=== PATIENT | female | born 2000 | race Hispanic/Latino ===

== ENCOUNTER 2022-03-17 15:02 | Emergency (ER) | payer OTHER, SELFPAY ==
[2022-03-17 15:10] VITALS: BP 110/67; PULSE 72; RESP 16; TEMP 37.3; O2SAT 100
--- NOTE | 2022-03-17 15:17 | ED.ABDPAIN ---
HPI - Abdominal Pain General Chief Complaint: Abdominal Pain Stated Complaint: abd pain Time Seen by Provider: 03/17/22 15:17 Source: patient, RN notes reviewed and old records reviewed Mode of arrival: ambulatory Limitations: no limitations History of Present Illness HPI narrative: 21-year-old female presents to the [facility] with complaints of abdominal pain. Patient reports 6 days of generalized abdominal pain, diarrhea. States every time she eats or drinks anything she develops nausea within 30 minutes. Has not been able to eat any foods without pain for the last 6 days. States her diarrhea has gotten a little bit better, not as watery. Denies fevers. No urinary symptoms. Denies chances of MD elicited complaint: abdominal pain Onset (ago): day(s) (6) Related Data Patient : No Home Medications Medication Instructions Recorded Confirmed No Home Medications 03/17/22 03/17/22 Allergies Allergy/AdvReac Type Severity Reaction Status Date / Time No Known Allergies Allergy Verified 03/17/22 15:13 Review of Systems Review of Systems: All systems reviewed & are unremarkable except as noted in HPI and below Constitutional: Constitutional: Reports no additional constitutional complaints, Denies body ache(s), Denies chills and Denies fever(s) Eyes: Eyes: Reports no additional eye complaints ENT: Reports system reviewed and no additional complaints, except as documented Cardiovascular: Cardiovascular: Reports no additional cardiovascular complaints, Denies chest pain and Denies dyspnea Respiratory: Respiratory: Reports no additional respiratory complaints, Denies cough and Denies dyspnea Gastrointestinal: Gastrointestinal: Reports as per HPI, Reports abdominal pain, Reports diarrhea, Reports nausea and Reports vomiting Genitourinary: Genitourinary: Reports no additional female genitourinary complaints, Denies nocturia, Denies genital lesions, Denies dysuria, Denies pelvic pain, Denies flank pain and Denies urinary incontinence Musculoskeletal: Musculoskeletal: Reports no additional musculoskeletal complaints Integumentary/Breasts: Skin/Breast: Reports system reviewed and no additional complaints, except as docu Neurologic: Reports system reviewed and no additional complaints, except as documented Psychiatric: Psychiatric: Reports no additional psychiatric complaints Allergic/Immunologic: Allergic/Immunologic: Reports no additional allergic/immunologic complaints PMFSH Past Medical History Medical History Patient denies medical problems Surgical History Surgical History (Updated 03/17/22 @ 15:26 by Kim Hill APRN) No pertinent past surgical history Social History Social History (Updated 03/17/22 @ 15:27 by Kim Hill APRN) Gender identity (if verbalized by the patient): Female Comments At the time of my signature, I reviewed and agree with the nursing past medical, surgical, social, and family history. There is no relevant family history pertinent to the patient complaint. Exam Const: General: cooperative, healthy appearing, comfortable, no acute distress, well developed and alert Nutritional Appearance: well nourished Orientation/consciousness: patient oriented x3 Limitations: no limitations HENMT: Head: normal to inspection Ears: external ears normal General nose exam: Normal external nose present Mouth: Yes Normal oral and palatal mucosa present Throat: posterior oropharynx normal Eyes: Pupils: Equal, round and reactive pupils present Neck: Neck: normal visual inspection, no lymphadenopathy and no meningeal signs Chest: Chest palpation & inspection: normal inspection of the chest Resp: Effort & Inspection: normal respiratory effort, able to speak in complete sentences and no use of accessory muscles Auscultation: clear to auscultation bilaterally Cardio: Rate: regular rate Rhythm: regular rhythm G
== END 2022-03-17 15:30 | disposition short-term general hospital (02) ==
LOC: EXPCOLL 15:05
PROVIDERS: Emergency Provider Nurse Practitioner
DX: R10.84 Generalized abdominal pain (principal)
CPT/HCPCS: 99212; G0463

== ENCOUNTER 2022-03-17 15:46 | Emergency (ER) | payer OTHER, SELFPAY ==
--- NOTE | ~2022-03-17 | CT_ITS ---
EXAMINATION: CT abdomen pelvis w con INDICATION: Abdominal pain TECHNIQUE: Computed tomographic images of the abdomen and pelvis were obtained after the administrati on of 85 cc of Omnipaque 300 intravenous contrast. The dose-length product (DLP) was 193.24 mGy-cm. A utomated exposure control and iterative reconstruction technique were employed. COMPARISON: None available FINDINGS: The heart size is normal. There is a partially imaged 3.1 x 1.9 cm cystic and solid soft ti ssue density involving the lateral aspect of the right middle lobe. The liver, spleen, pancreas, gall bladder, and adrenal glands are normal. The kidneys are unremarkable. A moderate volume of colonic st ool is present. The appendix is normal. There is mild enlargement of the parametrial vessels in the l eft pelvis which can be seen in the setting of pelvic venous congestion syndrome. No pathologically enlarged abdominal or pelvic lymph nodes are identified. There is no free intraperi toneal gas or evidence of bowel obstruction. IMPRESSION: 1. Mild enlargement of the parametrial vessels in the left pelvis which can be seen in the setting of pelvic venous congestion syndrome. 2. Partially imaged complex cystic and solid soft tissue density of the right middle lobe, possibly r eflecting old pulmonary infarct or chronic infection. Given that finding is unrelated to patient's cu rrent clinical presentation, would recommend follow-up with nonemergent CT of the chest. Reviewed, dictated and finalized at location F. IMPRESSION: 1. Mild enlargement of the parametrial vessels in the left pelvis which can be seen in the setting of pelvic venous congestion syndrome. 2. Partially imaged complex cystic and solid soft tissue density of the right m iddle lobe, possibly reflecting old pulmonary infarct or chronic infection. Giv en that finding is unrelated to patient's current clinical presentation, would recommend follow-up with nonemergent CT of the chest.
[2022-03-17 16:00] VITALS: BP 103/72; PULSE 67; RESP 18; TEMP 37.1; O2SAT 100
[2022-03-17 16:19] LABS: Basophils Percent Auto 0.7 % (0.2-1.2); Eosinophils Absolute Auto 0.1 K/mm3 (0-0.3); Eosinophils Percent Auto 3.1 % (0-4.4); Hematocrit 42.3 % (37.0-47.0); Hemoglobin 13.3 g/dL (12.0-15.0); Lymphocytes Percent Auto 40.9 % (18.3-44.2); Mean Corpuscular HGB Conc 31.4 g/dl (32-36); Mean Corpuscular Hemoglobin 28.4 pg (26-34); Mean Corpuscular Volume 90.4 fl (80-100); Mean Platelet Volume 11.4 fl (7.4-10.4); Monocytes Absolute Auto 0.3 K/mm3 (0.1-0.6); Monocytes Percent Auto 8.2 % (2.6-8.5); Neutrophils Percent Auto 47.1 % (45.5-73.1); Platelet Count Result 198 k/mm3 (150-375); Red Blood Count 4.68 M/mm3 (4.2-5.4); Red Cell Distribution Width 12.5 % (11.5-14.5); White Blood Count 4.2 K/mm3 (4.5-10.0)
[2022-03-17 16:30] LABS: Atypical Lymphocytes Present; Ovalocytes 1+ (NORMAL); Platelet Estimate Adequate (Adequate)
[2022-03-17 16:31] LABS: Alanine Aminotransferase 7 U/L (6-35); Albumin Level 4.4 g/dL (3.5-5.1); Alkaline Phosphatase 54 U/L (38-126); Anion Gap 7 mmol/L (8-16); Aspartate Amino Transferase 29 U/L (14-36); Bilirubin,Total 0.2 mg/dL (0.2-1.3); Blood Urea Nitrogen 8 mg/dL (7-17); Calcium 8.7 mg/dL (8.4-10.2); Carbon Dioxide 24 mmol/L (22-30); Chloride 106 mmol/L (98-107); Estimated CRCL calculation 70 ml/min; Estimated Glomerular Filt Rate > 60; Glucose 86 mg/dL (65-110); Lipase 106 U/L (23-300); Potassium 4.1 mmol/L (3.4-5.0); Sodium 137 mmol/L (137-145)
[2022-03-17 16:46] LABS: Add Urine Microscopic? NO; Appearance Urine Clear (Clear); Bilirubin Urine Negative (Negative); Blood Urine Negative (Negative); Color Urine Yellow (Yellow); Glucose Urine UA Negative (Negative); Ketones Urine Negative (Negative); Leukocyte Esterase Ur Negative LEU/UL (Negative); Nitrate Urine Negative (Negative); Protein Urine Negative (Negative); Urobilinogen Urine 0.2 mg/dL (<2.0); pH Urine 5.5 (5.0-9.0)
--- NOTE | 2022-03-17 17:56 | ED.ABDPAIN ---
HPI - Abdominal Pain General Chief Complaint: Abdominal Pain Stated Complaint: abd pain Time Seen by Provider: 03/17/22 17:21 Source: RN notes reviewed History of Present Illness HPI narrative: Patient presents emergency department from urgent care for abdominal pain. Patient states abdominal pain began 6 days ago. The pain is located in the bilateral lower abdomen and does not radiate described as sharp and stabbing in nature. Patient states she initially had diarrhea the pain but that has since ceased she denies any fevers or chills. States occasional nausea but denies any vomiting denies any other symptoms at this time denies any vaginal bleeding or discharge Related Data Allergies Allergy/AdvReac Type Severity Reaction Status Date / Time No Known Allergies Allergy Verified 03/17/22 15:13 Review of Systems Review of Systems: Gen.: Denies fevers or chills ENT: Denies congestion Respiratory: Denies shortness of breath or cough CV: Denies chest pain or palpitations GI: See HPI denies burning, urgency, frequency or hematuria Musculoskeletal: Denies back pain or muscle pain Neuro: Denies numbness, tingling, weakness or focal weakness Skin: Denies rash Except as documented, all other systems reviewed and negative PMFSH Past Medical History Medical History Patient denies medical problems Surgical History Surgical History (Updated 03/17/22 @ 15:26 by Kim Hill APRN) No pertinent past surgical history Social History Social History (Updated 03/17/22 @ 17:57 by Az Sim DO) Smoking status: Never smoker Gender identity (if verbalized by the patient): Female Exam Narrative: APPEARANCE: No acute distress, nontoxic, resting in bed HEENT: Normocephalic, atraumatic, OMM RESPIRATORY: No respiratory distress, clear to auscultation bilaterally with no rhonchi wheezing or rales CARDIOVASCULAR: RRR s murmur ABDOMINAL: Soft nondistended tender palpation right lower quadrant left lower quadrant no tenderness right upper quadrant left upper quadrant no rebound or guarding MUSCULOSKELETAl: Moves all extremities. No clubbing, cyanosis or edema. NEURO: Awake and alert. Following commands, speech normal, no focal deficits SKIN:: Warm, dry. Normal Color PSYCHIATRIC: Normal affect/mood Course Course Emergency Course: Patient states that they are feeling much better at this time. States abdominal pain has resolved. Repeat abdominal exam shows the patient's abdomen to be soft and nontender. Discussed with patient results of workup and diagnosis. Discussed need for follow-up with primary care physician, reasons to return to the emergency department in proper use of medication. Patient understands and agrees to current treatment plan discussed with patient her CT scan of her chest she has been having no coughing no shortness of breath discussed need for follow-up imaging as an outpatient. Patient states she does have regular [employer] she follows with and will follow as an outpatient Vital Signs Vital signs: Vital Signs Temperature 98.7 F 03/17/22 16:00 Pulse Rate 67 03/17/22 16:00 Respiratory Rate 18 03/17/22 16:00 Blood Pressure 103/72 03/17/22 16:00 Pulse Oximetry 100 03/17/22 16:00 Oxygen Delivery Room Air 03/17/22 16:00 Temperature 98.7 F 03/17/22 16:00 Pulse Rate 67 03/17/22 16:00 Respiratory Rate 18 03/17/22 16:00 Blood Pressure 103/72 03/17/22 16:00 Pulse Oximetry 100 03/17/22 16:00 Oxygen Delivery Room Air 03/17/22 16:00 MDM - Abdominal Pain MDM Narrative Medical decision making narrative: Patient's abdomen is soft without significant pain or signs of surgical abdomen on serial exams. Lab and x-ray evaluations are reviewed and patient is felt to be a reasonable candidate for outpatient management. Patient was instructed as to limitations of x-ray and laboratory evaluation and encouraged to return to ED o
[2022-03-17] MEDS: SODIUM CHLORIDE 0.9% IV 1,000 ML 999 ML IV CONT (18:29)
[2022-03-17] MEDS: KETOROLAC 30 MG/ML VIAL (*BKC) IV PUSH (18:29)
[2022-03-17 20:32] VITALS: BP 112/79; PULSE 80; RESP 17; O2SAT 100
== END 2022-03-17 20:34 | disposition home or self-care (01) ==
PROVIDERS: Emergency Provider Emergency Medicine
DX: R10.32 Left lower quadrant pain (principal); R10.31 Right lower quadrant pain; R93.5 Abnormal findings on diagnostic imaging of other abdominal regions, including retroperitoneum; R91.8 Other nonspecific abnormal finding of lung field
CPT/HCPCS: 36415; 74177; 80053; 81003; 81025; 83690; 85025; 96361; 96374; 99284; J1885; J7030; Q9967

== ENCOUNTER 2023-03-15 13:42 | Emergency (ER) | payer OTHER, SELFPAY ==
[2023-03-15 13:49] VITALS: BP 97/63; PULSE 107; RESP 16; TEMP 37.3; O2SAT 99
[2023-03-15 13:56] VITALS: BP 97/63; PULSE 107; RESP 16; TEMP 37.3; O2SAT 99
--- NOTE | 2023-03-15 14:09 | ED.URI ---
HPI - URI/Sore Throat General Chief Complaint: Ear Stated Complaint: fever, body aches, pain in left ear Time Seen by Provider: 03/15/23 14:00 Source: patient and family Mode of arrival: ambulatory Limitations: no limitations History of Present Illness HPI Narrative: Jazmín is a 22-year-old female patient presenting to the clinic today with complaints sore throat, fever, body aches, and pain in her left ear times 1 day. She reports symptoms began last night. Highest temperature was 100.9? F. no known exposure to anybody with COVID, flu, or strep. MD elicited complaint: fever, sore throat, nasal congestion and other (Body aches, ear pain) Related Data Allergies Allergy/AdvReac Type Severity Reaction Status Date / Time No Known Allergies Allergy Verified 03/15/23 13:51 Review of Systems Review of Systems: Pertinent positives per HPI. Patient denies any rash, headache, visual changes, dizziness, shortness of breath, chest pain, palpitations, nausea, vomiting, diarrhea, constipation, abdominal pain, or any urinary issues. PMFSH Past Medical History Medical History Patient denies medical problems Surgical History Surgical History No pertinent past surgical history Social History Social History Smoking status: Never smoker Gender identity (if verbalized by the patient): Female Comments At the time of my signature, I reviewed and agree with the nursing past medical, surgical, social, and family history. There is no relevant family history pertinent to the patient complaint. Exam Narrative: General: Well-developed, well nourished, in no apparent distress Head: Normocephalic, atraumatic Eyes: Pupils equally round and reactive to light bilaterally, EOM intact, sclera and conjunctive clear, no discharge, lids normal Ears: TMs intact and congested, ear canals clear, no drainage, grossly hearing normal. Nose: Nares patent, clear discharge, no inflammation, no sinus tenderness. Mouth: Oral pharynx red without lesions or masses, good dentition, MMM. Neck: Supple, trachea midline, no enlargement of anterior or posterior cervical nodes, no thyroid masses or goiter palpable. Cardio: Regular rate and rhythm, s1 and s2 normal, no murmur appreciated. Resp: Clear to auscultation bilaterally, no rhonchi, rales, wheezing or rubs Course Course Emergency Course: Portions of this record may have been created with voice recognition software. Level of Care: Express Care Visit Vital Signs Vital signs: Vital Signs Temperature 37.3 C 03/15/23 13:49 Pulse Rate 107 H 03/15/23 13:49 Respiratory Rate 16 03/15/23 13:49 Blood Pressure 97/63 L 03/15/23 13:49 Pulse Oximetry 99 03/15/23 13:49 Oxygen Delivery Room Air 03/15/23 13:49 Temperature 37.3 C 03/15/23 13:56 Pulse Rate 107 H 03/15/23 13:56 Respiratory Rate 16 03/15/23 13:56 Blood Pressure 97/63 L 03/15/23 13:56 Pulse Oximetry 99 03/15/23 13:56 Oxygen Delivery Room Air 03/15/23 13:56 Vital signs reviewed MDM - URI/Sore Throat MDM Narrative Medical decision making narrative: At the time of visit patient is resting comfortably on the exam table. Influenza and strep screen were obtained and negative in the clinic today. I suspect patient has viral syndrome, pharyngitis, otalgia, and URI. Supportive measures were discussed with the patient and she voiced understanding of discharge instructions agrees to treatment plan Differential Diagnosis Differential diagnosis: Likely upper respiratory infection, otitis media, sinusitis, viral infection, bronchitis, influenza, pharyngitis and other (COVID) Discharge Plan Discharge Clinical Impression: Acute upper respiratory infection, Acute otalgia, Pharyngitis, Acute viral syndrome Patient Disposi
== END 2023-03-15 14:21 | disposition home or self-care (01) ==
PROVIDERS: Emergency Provider Nurse Practitioner Family; PCP Physician Assistant
DX: J06.9 Acute upper respiratory infection, unspecified (principal); J02.9 Acute pharyngitis, unspecified; B34.9 Viral infection, unspecified; H92.02 Otalgia, left ear
CPT/HCPCS: 87081; 87804; 87880; 99213; G0463

== ENCOUNTER 2023-03-17 09:22 | Emergency (ER) | payer OTHER, SELFPAY ==
[2023-03-17 09:27] VITALS: BP 106/69; PULSE 100; RESP 16; TEMP 36.6; O2SAT 100
--- NOTE | 2023-03-17 09:54 | ED.ABDPAIN ---
HPI - Abdominal Pain General Chief Complaint: Abdominal Pain Stated Complaint: ABD PAIN IRREGULAR BM'S Time Seen by Provider: 03/17/23 09:33 History of Present Illness HPI narrative: This is a 22-year-old female, who presents to the emergency department complaining of lower abdominal pain, fevers and loose stools for the past 3 days. 4 days ago, the patient returned from [facility] from a recent trip. She states she developed cramping and intermittently sharp lower abdominal pain rated 8/10 at maximum and 4/10 at present. This is associated with loose brown stools without blood. She denies nausea, vomiting or dysuria. She states others on her trip have not had similar symptoms. She states her last menstrual period was 1 week ago. Related Data Allergies Allergy/AdvReac Type Severity Reaction Status Date / Time No Known Allergies Allergy Verified 03/17/23 10:32 Review of Systems Review of Systems: CONSTITUTIONAL: Denies fever, chills, or sweats. ENT: Denies rhinorrhea, congestion, sore throat, or otalgia. CARDIOVASCULAR: Denies chest pain, palpitations, or edema. RESPIRATORY: Denies cough or dyspnea. GASTROINTESTINAL: Lower abdominal pain, loose stools denies nausea or vomiting, GENITOURINARY: Denies dysuria or hematuria. SKIN: Denies rash or itching. MUSCULOSKELETAL: Denies back pain, joint pain, or myalgia. NEUROLOGIC: Denies headache, numbness, dizziness, or weakness. PSYCHIATRIC: Denies anxiety or depression. PMFSH Past Medical History Medical History Patient denies medical problems Surgical History Surgical History No pertinent past surgical history Social History Social History (Updated 03/17/23 @ 09:57 by Victor M Martell MD) Smoking status: Never smoker Alcohol intake: current Drinks per week: 1 Substance use: never Gender identity (if verbalized by the patient): Female Exam Narrative: GENERAL: Well-developed, well-nourished, appears uncomfortable HEAD: Normocephalic, atraumatic. EYES: PERRLA and EOMI. ENT: Nares clear, no rhinorrhea or epistaxis. Mucous membranes moist. Oropharynx without tonsillar hypertrophy exudate or other lesions. Bilateral TMs pearly cook nonbulging CHEST: Clear to auscultation. No respiratory distress. No wheezes rales or rhonchi HEART: Regular rate and rhythm. No murmur heard. Normal peripheral pulses. ABDOMEN: Soft, mild periumbilical tenderness to palpation, without rebound or guarding, nondistended, normal active bowel sounds. No CVA tenderness to palpation EXTREMITIES: Normal range of motion. No edema. SKIN: Warm, dry, no rash. NEURO: No focal deficits. Alert and oriented x3. PSYCH: Normal mood and affect. Course Vital Signs Vital signs: Vital Signs Temperature 97.9 F 03/17/23 09:27 Pulse Rate 100 03/17/23 09:27 Respiratory Rate 16 03/17/23 09:27 Blood Pressure 106/69 03/17/23 09:27 Pulse Oximetry 100 03/17/23 09:27 Temperature 97.9 F 03/17/23 09:27 Pulse Rate 86 03/17/23 11:33 Respiratory Rate 18 03/17/23 11:33 Blood Pressure 95/64 L 03/17/23 11:33 Pulse Oximetry 100 03/17/23 11:33 MDM - Abdominal Pain Lab Data 03/17/23 10:14 03/17/23 10:14 Labs: Lab Results 03/17/23 Range/Units 10:14 WBC 6.8 (4.5-10.0) K/mm3 RBC 4.44 (4.2-5.4) M/mm3 Hgb 11.7 L (12.0-15.0) g/dL Hct 39.3 (37.0-47.0) % MCV 88.5 (80-100) fl MCH 26.4 (26-34) pg MCHC 29.8 L (32-36) g/dl RDW 13.0 (11.5-14.5) % Plt Count 210 (150-375) k/mm3 MPV 11.3 H (7.4-10.4) fl Immature Gran % (Auto) 0.1 (0-0.5) % Neut % (Auto) 79.2 H (45.5-73.1) % Lymph % (Auto) 10.8 L (18.3-44.2) % [place] % (Auto) 8.3 (2.6-8.5) % Eos % (Auto) 1.0 (0-4.4) % Baso % (Auto) 0.6 (0.2-1.2) % Lymph # (Auto) 0.74 L (0.9-3.2) K/mm3 [place] # (Auto) 0.6 (0.1-0.6) K/mm3
[2023-03-17] MEDS: SODIUM CHLORIDE 0.9% IV 1,000 ML 999 ML IV CONT (10:30)
[2023-03-17 10:35] LABS: Basophils Percent Auto 0.6 % (0.2-1.2); Eosinophils Absolute Auto 0.1 K/mm3 (0-0.3); Hematocrit 39.3 % (37.0-47.0); Hemoglobin 11.7 g/dL (12.0-15.0); Immature Granulocyte Absolute 0.01 K/mm3 (0.00-0.031); Immature Granulocyte Percent A 0.1 % (0-0.5); Lymphocytes Absolute Auto 0.74 K/mm3 (0.9-3.2); Lymphocytes Percent Auto 10.8 % (18.3-44.2); Mean Corpuscular HGB Conc 29.8 g/dl (32-36); Mean Corpuscular Hemoglobin 26.4 pg (26-34); Mean Corpuscular Volume 88.5 fl (80-100); Mean Platelet Volume 11.3 fl (7.4-10.4); Monocytes Absolute Auto 0.6 K/mm3 (0.1-0.6); Monocytes Percent Auto 8.3 % (2.6-8.5); Neutrophils Absolute Auto 5.4 K/mm3 (1.3-6.7); Neutrophils Percent Auto 79.2 % (45.5-73.1); Platelet Count Result 210 k/mm3 (150-375); Red Blood Count 4.44 M/mm3 (4.2-5.4); White Blood Count 6.8 K/mm3 (4.5-10.0)
[2023-03-17 10:37] LABS: Alanine Aminotransferase 15 U/L (6-35); Albumin Level 3.8 g/dL (3.5-5.1); Alkaline Phosphatase 43 U/L (38-126); Anion Gap 6 mmol/L (8-16); Aspartate Amino Transferase 28 U/L (14-36); Bilirubin,Total 0.3 mg/dL (0.2-1.3); Blood Urea Nitrogen 7 mg/dL (7-17); Calcium 8.5 mg/dL (8.4-10.2); Carbon Dioxide 31 mmol/L (22-30); Chloride 101 mmol/L (98-107); Estimated CRCL calculation 82 ml/min; Estimated Glomerular Filt Rate > 60; Glucose 103 mg/dL (65-110); Lipase 91 U/L (23-300); Potassium 3.8 mmol/L (3.4-5.0); Sodium 138 mmol/L (137-145)
[2023-03-17 10:49] LABS: Amorphous Sediment Urine Present; Appearance Urine Cloudy (Clear); Bacteria Urine Rare /hpf; Bilirubin Urine Negative (Negative); Blood Urine Negative (Negative); Color Urine Yellow (Yellow); Glucose Urine UA Negative (Negative); Ketones Urine Negative (Negative); Leukocyte Esterase Ur Negative LEU/UL (Negative); Nitrate Urine Negative (Negative); Non Pathogenic Casts 0-2; Protein Urine Trace mg/dL (Negative); Specific Grav Ur 1.022 (1.001-1.035); Squamous Epithelial Cell Urine Few /hpf (Few); Urobilinogen Urine 0.2 mg/dL (<2.0); WBC Urine 0-5 /hpf
[2023-03-17 10:50] LABS: Add Urine Microscopic? YES
[2023-03-17 11:33] VITALS: BP 95/64; PULSE 86; RESP 18; O2SAT 100
== END 2023-03-17 12:26 | disposition home or self-care (01) ==
PROVIDERS: Emergency Provider Preventive Medicine Aerospace Medicine; PCP Physician Assistant
DX: A09 Infectious gastroenteritis and colitis, unspecified (principal)
CPT/HCPCS: 36415; 80053; 81001; 81025; 83690; 85025; 96361; 96365; 99284; J0131; J7030

== ENCOUNTER 2025-04-30 09:42 | Emergency (ER) | payer SELFPAY ==
--- NOTE | 2025-04-30 09:48 | ED.EYEPROB ---
HPI - Eye Problem General Chief complaint: Eye Problems Stated complaint: Eyes Irritation Time Seen by Provider: 04/30/25 09:47 Source: patient Mode of arrival: ambulatory Limitations: no limitations History of Present Illness HPI Narrative: Patient is a 24-year-old female who presents with 1 day of red itchy eyes with crusting when she woke up this morning. Has use [id number] lubricating eye drops with mild relief of eye redness. Does not wear contacts or glasses. Denies any photosensitivity at this time. Related Data Allergies Allergy/AdvReac Type Severity Reaction Status Date / Time No Known Allergies Allergy Verified 04/30/25 09:53 Review of Systems Review of Systems: All systems reviewed & are unremarkable except as noted in HPI and below Constitutional: Constitutional: Denies body ache(s), Denies fever(s), Denies headache(s), Denies malaise and Denies weakness Eyes: Eyes: Denies blurry vision, Reports eye discharge, Reports irritation, Reports itchy eyes, Denies loss of vision and Denies eye pain ENT: Denies otalgia, Denies headache(s), Denies nasal discharge, Denies sinus pain and Denies sore throat Cardiovascular: Cardiovascular: Denies chest pain, Denies irregular heart rhythm and Denies dyspnea Respiratory: Respiratory: Denies dyspnea Gastrointestinal: Gastrointestinal: Denies abdominal pain, Denies diarrhea, Denies nausea and Denies vomiting Musculoskeletal: Musculoskeletal: Denies back pain, Denies myalgias and Denies arthralgias Integumentary/Breasts: Skin/Breast: Denies pruritus and Denies rash Neurologic: Denies headache(s), Denies loss of vision and Denies weakness Psychiatric: Psychiatric: Reports no additional psychiatric complaints Allergic/Immunologic: Allergic/Immunologic: Reports itchy eyes PMFSH Past Medical History Medical History Patient denies medical problems Surgical History Surgical History No pertinent past surgical history Social History Social History Smoking status: Never smoker Alcohol intake: current Drinks per week: 1 Substance use: never Gender identity (if verbalized by the patient): Female Comments At time of signature, agree with nursing past medical, surgical, social and family history. There is no relevant family history pertinent to the presenting complaint. Exam Const: General: cooperative, healthy appearing, comfortable, no acute distress and well nourished Nutritional Appearance: well nourished Orientation/consciousness: patient oriented x3 Limitations: no limitations HENMT: Head: normal to inspection, normocephalic and atraumatic Ears: external ears normal Face/Nose/Sinus: Normal external nose present, normal facial exam and face symmetric Face and sinus: normal facial exam and face symmetric Mouth: Yes lip normal Eyes: General: appearance normal, both eyes and all related structures Visual Muse: normal visual muse by confrontation Alignment and Position: alignment normal and position normal Periorbital: periorbital findings normal Eyelids: eyelids normal Conjunctivae: conjunctival abnormality bilateral conjunctival injection diffuse Sclera: scleral abnormality bilateral scleral injection diffuse Pupils: Equal, round and reactive pupils present EOM: EOMs intact bilaterally Direct Ophthalmoscopy: no photophobia Other: No hyphema, no foreign body under the lids. Neck: Neck: normal visual inspection, full ROM, no lymphadenopathy and no meningeal signs Chest: Chest palpation & inspection: normal inspection of the chest Resp: Effort & Inspection: normal respiratory effort and able to speak in complete sentences Auscultation: clear to auscultation bilaterally Cardio: Rate: regular rate Rhythm: regular rhythm Heart sounds: S1 normal heart sound present and S2 normal heart sound present GI: Inspection: normal to inspection Skin: General skin exam: normal color and no rashes or lesions noted Neuro: General: patient oriented x3, moves all extremities and no meningeal signs Cranial nerves: Yes Equal, round and reactive pupils present Speech: normal speech Gait exam (Neuro): Normal gait present Extrem: General: normal to inspection, full ROM and no edema Psych: Appearance: grossly normal and well kempt Mental Status: mental status grossly normal Speech and movement: Normal speech and movement present Affect: normal affect Attitude: cooperative Thought process: Normal thought process present Course Course Emergency Course: Patient is aware of diagnosis, understands and agrees to treatment plan. Anticipatory guidance given. Patient agrees to follow-up as directed and is aware of reasons to seek care at the emergency department. Portions of this record may have been created with voice recognition software Level of Care: Express Care Visit Vital Signs Vital signs: Reviewed MDM - Eye Problem MDM Narrative Medical decision making narrative: Exam findings show no acute concerns or changes; patient is non-toxic appearing and is in no distress.? Patient is appropriate for outpatient treatment and follow-up Discharge instructions reviewed with patient and family, as well as provided in writing per nursing staff. The instructions also include specific and strict return/GO TO THE ER as well as f/u information. All questions have been answered, and the patient deny any further questions with discharge and discharge plan. Consideration of the following conditions may be warranted for the presenting problem, they are not final diagnoses: Bacterial conjunctivitis, allergic conjunctivitis, viral conjunctivitis, foreign body, blepharitis, chalazion, hordeolum, corneal abrasion. Medical Records Attestation: I reviewed the patient's medical records. Discharge Plan Discharge Clinical Impression: Conjunctivitis Qualifiers: Conjunctivitis type: acute Acute conjunctivitis type: bacterial Laterality: bilateral Qualified Code(s): H10.33 - Unspecified acute conjunctivitis, bilateral Patient Disposition: Home Condition: Stable Instructions: Conjunctivitis (ED) Additional Instructions: Eye drops as prescribed. -Do this for 3 to 4 days until all redness and discharge has disappeared. -Cold compresses to the affected eye for comfort -May need warm compresses to remove debris in the morning -When cleaning the eyes used a washcloth/cotton ball in one direction then change washcloths/cotton ball before using it on another eye. -Do not share medicine--do not touch the eye with the medicine -Alternate or take Tylenol or ibuprofen as directed in the bottle for pain -Avoid screen time--television, computer, tablet or phone. 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 Go to the emergency room if you have pain behind your eye, pressure behind her eye, difficulty seeing, or other severe symptoms Patient Language: Macedonian Prescriptions: New ofloxacin 0.3 % drops See Rx Instructions .ROUTE .COMPLEX Qty: 10 0RF Rx Instructions: put 1-2 drps into each eye every 2-4 h x 2 days, then 1-2 drps 4 times/day days 3-7 Follow-up/Referrals: Violeta,CANDY Lanier [Primary Care Provider] - 3 Days Stand Alone Forms: Work/School Release IP Time of Disposition: 10:39
[2025-04-30 09:56] VITALS: BP 102/70; PULSE 81; RESP 20; TEMP 37.1; O2SAT 99
== END 2025-04-30 10:45 | disposition home or self-care (01) ==
PROVIDERS: Emergency Provider Nurse Practitioner Family; PCP Physician Assistant
DX: H10.33 Unspecified acute conjunctivitis, bilateral (principal)
CPT/HCPCS: 99213; G0463